=== PATIENT | female | born 1945 | race Caucasian/White ===

== ENCOUNTER → 2017-04-26 | Outpatient (CLI) | payer OTHER, MEDICARE ==
[~2017-04-26] MED LIST: ADVIL LIQUI-GE200 MG PO; AMBEREN PO; AMLODIPINE BESY10 MG PO; BENAZEPRIL HCL20 MG PO; CALCIUM 600 +1 EAC1 PO; CARISOPRODOL 3350 MG PO; COLACE100 MG PO; COUMADIN 5 MG TA5 M1 PO; DAILY VALUE1 EAC1 PO; ENOXAPARIN80 MG/0.1 SUBQ; FISH OIL 1,0001 EAC5 PO; HYDROCODONE-AP1 EAC6 PO; LOSARTAN-HCTZ1 EAC2 PO; MEDROLDOSEPACK PO; METOPROLOL SUCC50 MG PO; MIRALAX17 GM PO; MOBIC15 MG PO; NABUMETONE 500500 M1 PO; NEURONTIN 300300 M1 PO; PENTOXIFYLLINE400 MG PO; PERCOCET 10-321 EACH PO; RECLAST 55 MG/100 M IV; REQUIP3 MG PO; SENNA LAXATIVE1 EACH PO; SIMVASTATIN40 MG PO; TRAMADOL 50 MG50 MG PO; TRIAMCINOLONE 080 G3; TRIAMCINOLONE A15 G1 TOP; ULTRAM ER100 MG PO; ULTRAM ER200 MG PO
== END ==
LOC: NUC 08:38 → RAD 10:57
DX: Z12.31 Encounter for screening mammogram for malignant neoplasm of breast (principal); M81.0 Age-related osteoporosis without current pathological fracture

== ENCOUNTER → 2017-06-08 | Outpatient (CLI) | payer OTHER, MEDICARE | LOC: RAD 13:36 | DX: J44.9 Chronic obstructive pulmonary disease, unspecified (principal) ==

== ENCOUNTER → 2018-04-27 | Outpatient (CLI) | payer OTHER, MEDICARE | LOC: RAD 04-20 09:58 | DX: J44.9 Chronic obstructive pulmonary disease, unspecified (principal); I10 Essential (primary) hypertension ==

== ENCOUNTER → 2018-11-15 | Outpatient (CLI) | payer OTHER, MEDICARE | LOC: CAT 09:35 | DX: K42.9 Umbilical hernia without obstruction or gangrene (principal); I25.10 Atherosclerotic heart disease of native coronary artery without angina pectoris; I70.0 Atherosclerosis of aorta; M47.816 Spondylosis without myelopathy or radiculopathy, lumbar region; J44.9 Chronic obstructive pulmonary disease, unspecified; M81.0 Age-related osteoporosis without current pathological fracture; I10 Essential (primary) hypertension; E78.5 Hyperlipidemia, unspecified; Z88.8 Allergy status to other drugs, medicaments and biological substances; Z88.5 Allergy status to narcotic agent; Z86.711 Personal history of pulmonary embolism; Z78.0 Asymptomatic menopausal state; Z79.899 Other long term (current) drug therapy; Z87.891 Personal history of nicotine dependence; Z82.49 Family history of ischemic heart disease and other diseases of the circulatory system; Z82.5 Family history of asthma and other chronic lower respiratory diseases ==

== ENCOUNTER → 2019-04-26 | Outpatient (CLI) | payer OTHER, MEDICARE | LOC: RAD 12:03 | DX: M41.85 Other forms of scoliosis, thoracolumbar region (principal); Q79.1 Other congenital malformations of diaphragm; J44.9 Chronic obstructive pulmonary disease, unspecified ==

== ENCOUNTER → 2019-05-15 | Outpatient (CLI) | payer OTHER, MEDICARE | LOC: NUC 09:26 | DX: Z12.31 Encounter for screening mammogram for malignant neoplasm of breast (principal); N91.2 Amenorrhea, unspecified; Z78.0 Asymptomatic menopausal state ==

== ENCOUNTER → 2020-02-02 | Outpatient (CLI) | payer OTHER, MEDICARE | LOC: SJCVC 10:35 | PROVIDERS: ATTEND Internal Medicine | DX: I10 Essential (primary) hypertension (principal); E78.2 Mixed hyperlipidemia; R76.0 Raised antibody titer; I70.0 Atherosclerosis of aorta; I70.8 Atherosclerosis of other arteries; J41.0 Simple chronic bronchitis; M81.0 Age-related osteoporosis without current pathological fracture; Z86.711 Personal history of pulmonary embolism; Z82.49 Family history of ischemic heart disease and other diseases of the circulatory system; Z87.891 Personal history of nicotine dependence; Z79.899 Other long term (current) drug therapy ==

== ENCOUNTER → 2020-02-07 | Outpatient (CLI) | payer OTHER, MEDICARE | LOC: ULTRA 10:27 | PROVIDERS: ATTEND Nurse Practitioner | DX: I10 Essential (primary) hypertension (principal) ==

== ENCOUNTER → 2020-03-13 | Outpatient (CLI) | payer OTHER, MEDICARE | LOC: SJCVCIMAG 08:30 | PROVIDERS: ATTEND Internal Medicine | DX: I08.3 Combined rheumatic disorders of mitral, aortic and tricuspid valves (principal); I27.20 Pulmonary hypertension, unspecified; I10 Essential (primary) hypertension; I70.0 Atherosclerosis of aorta; G47.33 Obstructive sleep apnea (adult) (pediatric); I70.8 Atherosclerosis of other arteries; J41.0 Simple chronic bronchitis; Z79.899 Other long term (current) drug therapy; Z86.711 Personal history of pulmonary embolism; Z87.891 Personal history of nicotine dependence ==

== ENCOUNTER → 2020-09-23 | Outpatient (CLI) | payer OTHER, MEDICARE | LOC: SJCVC 13:33 | PROVIDERS: ATTEND Internal Medicine | DX: I10 Essential (primary) hypertension (principal); I70.0 Atherosclerosis of aorta; I70.8 Atherosclerosis of other arteries; G47.33 Obstructive sleep apnea (adult) (pediatric); J41.0 Simple chronic bronchitis; E78.5 Hyperlipidemia, unspecified; M81.0 Age-related osteoporosis without current pathological fracture; Z88.8 Allergy status to other drugs, medicaments and biological substances; Z98.890 Other specified postprocedural states; Z79.899 Other long term (current) drug therapy; Z86.711 Personal history of pulmonary embolism; Z87.891 Personal history of nicotine dependence; Z82.49 Family history of ischemic heart disease and other diseases of the circulatory system ==

== ENCOUNTER → 2020-11-13 | Outpatient (CLI) | payer OTHER, MEDICARE ==
[~2020-11-13] VITALS: Ht 10.2 cm; Wt 80.7 kg
[~2020-11-13] MED LIST changes: +MELOXICAM15 MG PO; +MYRBETRIQ50 MG PO; +SPIRIVA18 MCG INH; +SPIRONOLACTONE50 MG PO; +VALSARTAN80 MG PO; +VENTOLIN HFA INH8 GM INH
[2020-11-13 13:22] VITALS: BP 148/71
--- NOTE | 2020-11-13 13:49 | NUR ---
Pain Clinic Assessment: 1. History of Osteoarthritis: RIGHT SHOULDER LOW BACK KNEES History of Rheumatoid Arthritis: [place] 2. Height: 5 ft. 4 in. 10.2 cm. Weight: 178.0 lb. oz. 80.740 kg. Patient's BMI: 7760.5 3. Vital Signs: BP: 148/71 Pulse: 64 Resp: 18 Temp: 02 Sat: 95 ECG Mon: 4. Pain Intensity: 4 TO 10 5. Fall Risk: Dizziness: N Needs help standing or walking: N Fallen in the last 3 months: N Fall risk comments: 6. Patient on Blood Thinner: None 7. History of Hypertension: Y 8. Opioid Therapy greater than 6 weeks: N Opiate Contract Signed: 9. Risk Assessment Tool Provided: LOW-0 10. Functional Assessment Tool: 11. Recreational Drug Use: Never Drug Type: Tobacco Use: Former Smoker Tobacco Type: Amount or Packs/day: How Many Years: Alcohol Use: No Frequency: Quant:
== END | disposition home or self-care (01) ==
LOC: PAIN 12:03
PROVIDERS: ATTEND Anesthesiology Pain Medicine
DX: M79.18 Myalgia, other site (principal); M19.90 Unspecified osteoarthritis, unspecified site; Z96.651 Presence of right artificial knee joint; Z98.890 Other specified postprocedural states; Z79.899 Other long term (current) drug therapy

== ENCOUNTER → 2020-12-20 | Outpatient (CLI) | payer OTHER, MEDICARE ==
[~2020-12-20] VITALS: Ht 162.6 cm; Wt 81.2 kg
[2020-12-20 11:37] VITALS: BP 145/85
--- NOTE | 2020-12-20 11:41 | NUR ---
Pain Clinic Assessment: 1. History of Osteoarthritis: RIGHT SHOULDER LOW BACK KNEES History of Rheumatoid Arthritis: [place] 2. Height: 5 ft. 4 in. 162.6 cm. Weight: 179.0 lb. oz. 81.194 kg. Patient's BMI: 30.7 3. Vital Signs: BP: 145/85 Pulse: 83 Resp: 18 Temp: 02 Sat: 92 ECG Mon: 4. Pain Intensity: 1-3 5. Fall Risk: Dizziness: N Needs help standing or walking: N Fallen in the last 3 months: N Fall risk comments: 6. Patient on Blood Thinner: None 7. History of Hypertension: Y 8. Opioid Therapy greater than 6 weeks: N Opiate Contract Signed: 9. Risk Assessment Tool Provided: LOW-0 10. Functional Assessment Tool: 11. Recreational Drug Use: Never Drug Type: Tobacco Use: Former Smoker Tobacco Type: Amount or Packs/day: How Many Years: Alcohol Use: No Frequency: Quant:
== END | disposition home or self-care (01) ==
LOC: PAIN 07:11
PROVIDERS: ATTEND Anesthesiology Pain Medicine
DX: M54.16 Radiculopathy, lumbar region (principal); M48.061 Spinal stenosis, lumbar region without neurogenic claudication; G89.29 Other chronic pain; I10 Essential (primary) hypertension; J42 Unspecified chronic bronchitis; G47.33 Obstructive sleep apnea (adult) (pediatric); E78.5 Hyperlipidemia, unspecified; M81.0 Age-related osteoporosis without current pathological fracture; M19.90 Unspecified osteoarthritis, unspecified site; Z98.890 Other specified postprocedural states; Z79.899 Other long term (current) drug therapy; Z96.651 Presence of right artificial knee joint; Z79.01 Long term (current) use of anticoagulants; Z88.8 Allergy status to other drugs, medicaments and biological substances

== ENCOUNTER → 2021-01-03 | Outpatient (CLI) | payer OTHER, MEDICARE ==
[~2021-01-03] VITALS: Ht 162.6 cm; Wt 81.6 kg
[~2021-01-03] MED LIST changes: +HYDROCODON-ACE1 EAC7 PO
[2021-01-03 11:14] VITALS: BP 165/96
--- NOTE | 2021-01-03 11:18 | NUR ---
Pain Clinic Assessment: 1. History of Osteoarthritis: RIGHT SHOULDER LOW BACK KNEES History of Rheumatoid Arthritis: [place] 2. Height: 5 ft. 4 in. 162.6 cm. Weight: 180.0 lb. oz. 81.648 kg. Patient's BMI: 30.9 3. Vital Signs: BP: 165/96 Pulse: 84 Resp: 16 Temp: 02 Sat: 93 ECG Mon: 4. Pain Intensity: 9 5. Fall Risk: Dizziness: N Needs help standing or walking: N Fallen in the last 3 months: N Fall risk comments: 6. Patient on Blood Thinner: None 7. History of Hypertension: Y 8. Opioid Therapy greater than 6 weeks: N Opiate Contract Signed: 9. Risk Assessment Tool Provided: LOW-0 10. Functional Assessment Tool: 11. Recreational Drug Use: Never Drug Type: Tobacco Use: Former Smoker Tobacco Type: Amount or Packs/day: How Many Years: Alcohol Use: No Frequency: Quant:
== END | disposition home or self-care (01) ==
LOC: PAIN 07:06
PROVIDERS: ATTEND Anesthesiology Pain Medicine
DX: M54.5 Low back pain (principal); G89.29 Other chronic pain; M47.22 Other spondylosis with radiculopathy, cervical region; I10 Essential (primary) hypertension; E78.5 Hyperlipidemia, unspecified; G47.33 Obstructive sleep apnea (adult) (pediatric); J42 Unspecified chronic bronchitis; M19.90 Unspecified osteoarthritis, unspecified site; M91.0 Juvenile osteochondrosis of pelvis; Z98.890 Other specified postprocedural states; Z79.899 Other long term (current) drug therapy; Z96.651 Presence of right artificial knee joint; Z88.8 Allergy status to other drugs, medicaments and biological substances

== ENCOUNTER → 2021-04-03 | Outpatient (CLI) | payer OTHER, MEDICARE | LOC: RAD 13:21 → BC 15:29 | PROVIDERS: ATTEND Nurse Practitioner | DX: Z12.31 Encounter for screening mammogram for malignant neoplasm of breast (principal); R19.7 Diarrhea, unspecified; R10.30 Lower abdominal pain, unspecified; M41.86 Other forms of scoliosis, lumbar region; M47.816 Spondylosis without myelopathy or radiculopathy, lumbar region ==

== ENCOUNTER → 2021-06-04 | Outpatient (CLI) | payer OTHER, MEDICARE ==
[~2021-06-04] VITALS: Ht 162.6 cm; Wt 83.3 kg
[~2021-06-04] MED LIST changes: +ACETAMINOPHEN500 MG PO; +DEXILANT60 MG PO
[2021-06-04 10:12] VITALS: BP 115/53
--- NOTE | 2021-06-04 10:38 | NUR ---
Pain Clinic Assessment: 1. History of Osteoarthritis: RIGHT SHOULDER LOW BACK KNEES History of Rheumatoid Arthritis: [place] 2. Height: 5 ft. 4 in. 162.6 cm. Weight: 183.6 lb. oz. 83.280 kg. Patient's BMI: 31.5 3. Vital Signs: BP: 115/53 Pulse: 77 Resp: 16 Temp: 02 Sat: 100 ECG Mon: 4. Pain Intensity: NECK 8; LBP 5 5. Fall Risk: Dizziness: N Needs help standing or walking: N Fallen in the last 3 months: N Fall risk comments: 6. Patient on Blood Thinner: None 7. History of Hypertension: Y 8. Opioid Therapy greater than 6 weeks: N Opiate Contract Signed: 9. Risk Assessment Tool Provided: LOW-0 10. Functional Assessment Tool: 11. Recreational Drug Use: Never Drug Type: Tobacco Use: Former Smoker Tobacco Type: Amount or Packs/day: How Many Years: Alcohol Use: No Frequency: Quant:
== END | disposition home or self-care (01) ==
LOC: PAIN 09:53
PROVIDERS: ATTEND Anesthesiology Pain Medicine
DX: M79.18 Myalgia, other site (principal); M47.22 Other spondylosis with radiculopathy, cervical region; I10 Essential (primary) hypertension; M19.90 Unspecified osteoarthritis, unspecified site; J42 Unspecified chronic bronchitis; G47.33 Obstructive sleep apnea (adult) (pediatric); E78.5 Hyperlipidemia, unspecified; M91.0 Juvenile osteochondrosis of pelvis; Z98.890 Other specified postprocedural states; Z79.899 Other long term (current) drug therapy; Z96.651 Presence of right artificial knee joint

== ENCOUNTER → 2021-06-09 | Outpatient (CLI) | payer OTHER, MEDICARE | LOC: RAD 10:58 | PROVIDERS: ATTEND Internal Medicine Pulmonary Disease | DX: R06.02 Shortness of breath (principal); J98.6 Disorders of diaphragm ==

== ENCOUNTER → 2021-08-22 | Outpatient (CLI) | payer OTHER, MEDICARE ==
[~2021-08-22] VITALS: Ht 162.6 cm; Wt 84.7 kg
[2021-08-22 12:42] VITALS: BP 144/74
--- NOTE | 2021-08-22 12:52 | NUR ---
Pain Clinic Assessment: 1. History of Osteoarthritis: RIGHT SHOULDER LOW BACK KNEES History of Rheumatoid Arthritis: [place] 2. Height: 5 ft. 4 in. 162.6 cm. Weight: 186.8 lb. oz. 84.732 kg. Patient's BMI: 32.0 3. Vital Signs: BP: 144/74 Pulse: 74 Resp: 16 Temp: 02 Sat: 98 ECG Mon: 4. Pain Intensity: 5 5. Fall Risk: Dizziness: N Needs help standing or walking: N Fallen in the last 3 months: N Fall risk comments: 6. Patient on Blood Thinner: None 7. History of Hypertension: Y 8. Opioid Therapy greater than 6 weeks: N Opiate Contract Signed: 9. Risk Assessment Tool Provided: LOW-0 10. Functional Assessment Tool: 11. Recreational Drug Use: Never Drug Type: Tobacco Use: Former Smoker Tobacco Type: Amount or Packs/day: How Many Years: Alcohol Use: No Frequency: Quant:
== END | disposition home or self-care (01) ==
LOC: PAIN 08-20 13:03
PROVIDERS: ATTEND Anesthesiology Pain Medicine
DX: M79.18 Myalgia, other site (principal); M47.22 Other spondylosis with radiculopathy, cervical region; J42 Unspecified chronic bronchitis; I10 Essential (primary) hypertension; G47.33 Obstructive sleep apnea (adult) (pediatric); M19.90 Unspecified osteoarthritis, unspecified site; E78.5 Hyperlipidemia, unspecified; M81.0 Age-related osteoporosis without current pathological fracture; Z98.890 Other specified postprocedural states; Z79.899 Other long term (current) drug therapy; Z96.651 Presence of right artificial knee joint; Z87.891 Personal history of nicotine dependence; Z88.8 Allergy status to other drugs, medicaments and biological substances